=== PATIENT | male | born 1985 | race Caucasian/White ===

== ENCOUNTER 2018-11-21 00:12 | Emergency (ER) | payer SELFPAY ==
[~2018-11-21] VITALS: Ht 180.3 cm; Wt 78.7 kg
[~2018-11-21 00:12] MED LIST: NAPR-985 PO
[2018-11-21 00:32] VITALS: BP 129/88; PULSE 62; RESP 16; Ht 180.3 cm; Wt 78.7 kg
[2018-11-21] MEDS ORDERED: ONDANSETRON (ODT) 4 MG TAB ODT STA (01:55)
[2018-11-21] MEDS ORDERED: HYDROCODONE/APAP (5/325) TAB PO ONE (02:00)
== END 2018-11-21 03:41 | disposition home or self-care (01) ==
LOC: FTE 00:12
DX: S89.92XA Unspecified injury of left lower leg, initial encounter (principal); X58.XXXA Exposure to other specified factors, initial encounter; Y92.310 Basketball court as the place of occurrence of the external cause
CPT/HCPCS: 36415; 73562; 80053; 85025; 85651; 86140